=== PATIENT | male | born 1980 | race Caucasian/White ===

== ENCOUNTER 2019-07-29 11:24 | Emergency (ER) | payer OTHER ==
--- NOTE | 2019-07-29 11:38 | ED ---
Lower Extremity - HPI Summary HPI Summary: This patient is a 38 year old M presenting to [facility] accompanied by Jacquie with a chief complaint of right hip pain and right knee pain since 1135 due to a skateboard accident. Pt fell from a height of approximately 4 feet while skateboarding. Pt denies other injury. States he did not hit his head, did not lose consciousness. Pt's did not witness the fall. Pt denies headache, neck pain, back pain. C/O right knee pain in addition to right hip pain. Denies abd pain, N, V, chest pain, SOB. Patient states that he does not have any prior injuries to his right hip or his right knee. The patient rates the pain 9/10 in severity. Symptoms aggravated by movement per chlorinator operator and MD assessment. Symptoms alleviated by nothing. Vital signs while in room: HR 77 bpm, BP 116/87, O2 sat 100% Home Medications Medication Instructions Recorded Confirmed Type NK [No Home Medications Reported] 07/29/19 07/29/19 History - History of Current Complaint Stated Complaint: RT HIP PAIN PER PT Time Seen by Provider: 07/29/19 11:30 Hx Obtained From: Patient, Family/[employer] - , Jacquie Mechanism Of Injury: Fall From Height Of: - 4 feet Onset of Pain: Immediate - 1136 per pt, post fall Onset/Duration: Still Present Severity Initially: Severe Severity Currently: Severe Pain Intensity: 9 Pain Scale Used: 0-10 Numeric Timing: Constant, Lasting Hours - 1136, one hour Location: Is Discrete @ - Right hip and Right knee Character Of Pain: Sharp Associated Signs And Symptoms: Positive: Knee Pain - right knee pain. Negative : Swelling, Redness, Bruising, Weakness, Dizziness, Syncope, Abdominal Pain Aggravating Factor(s): Movement Alleviating Factor(s): Nothing Able to Bear Weight: No - brought pt to the ED - Allergies/Home Medications Allergies/Adverse Reactions: Allergies Allergy/AdvReac Type Severity Reaction Status Date / Time No Known Allergies Allergy Verified 07/29/19 11:35 Home Medications: Home Medications NK [No Home Medications Reported] 07/29/19 [History Confirmed 07/29/19] PMH/Surg Hx/FS Hx/Imm Hx Previously Healthy: Yes Sensory History: Denies: Hx Legally Blind, Hx Deafness Opthamlomology History: Denies: Hx Legally Blind - Surgical History Surgical History: Yes Surgery Procedure, Year, and Place: Tonsillectomy Infectious Disease History: No - Family History Known Family History: Positive: Cardiac Disease - grandmother - Social History Lives: With Family Alcohol Use: Daily Hx Substance Use: Yes Substance Use Type: Reports: Marijuana - occassionally Hx Tobacco Use: No Smoking Status (MU): Current Every Day Smoker Review of Systems Negative: Fever Eyes: Negative ENT: Negative Cardiovascular: Negative Respiratory: Negative Gastrointestinal: Negative Positive: no symptoms reported Positive: Other - Right hip pain and right knee pain Skin: Negative Neurological: Negative Psychological: Normal All Other Systems Reviewed And Are Negative: Yes Physical Exam - Summary Physical Exam Summary: Appearance: well-appearing, severe pain distress, well-nourished Skin: Warm, color reflects adequate perfusion, diaphoretic, no bruising Head: Normal Head/Face inspection, atraumatic Eyes: Conjunctiva clear, pupils midpoint, EOMI, no nystagmus ENT: Normal inspection, dental intact without pain on biting Neck: Supple, no nodes, no JVD, no spinal tenderness Respiratory: Lungs clear, normal breath sounds, no respiratory distress, no rib tenderness, no bruising, no crepitus Cardio: RRR, No murmur, pulses normal, brisk capillary refill Abdomen: Soft, nontender, nondistended; no masses; liver, spleen non palpable Bowel sounds: Present Musculoskeletal: pain on palpation right greater trochanter, pelvic rock no pain , not unstable, no bruising of right hip, no foreshortening, right knee without deformity, loss of sensation, able to flex and extend right knee but with severe pain, unable to lift right leg, able to dorsiflex and plantar flex right foot, distal pulses intact, no edema; no cervical, thoracic or lumbar spinal tenderness or deformity or bruising on log roll evaluation of pt's back Psychological: Normal Neuro: Alert, muscle tone normal, no focal deficit, GCS 15 : Nml circumcised M with Dontae RN in room upon exam Triage Information Reviewed: Yes Vital Signs Reviewed: Yes Diagnostics - Laboratory Result Diagrams: 07/29/19 11:51 07/29/19 11:51 Lab Statement: Any lab studies that have been ordered have been reviewed, and results considered in the medical decision making process. - Radiology Hip/Pelvis Xray Radiology Interpretation Completed By: Radiologist Summary of Radiographic Findings: Hip/Pelvis Xray reveals, per radiologist, IMPRESSION: RIGHT SUBCAPITAL FEMORAL NECK FRACTURE. ED Physician has reviewed this report. Right Knee Xray Radiology Interpretation Completed By: Radiologist Summary of Radiographic Findings: Right Knee Xray reveals, per radiologist, IMPRESSION: NO ACUTE OSSEOUS INJURY. IF SYMPTOMS PERSIST, RECOMMEND REPEAT IMAGING. ED Physician has reviewed this report. Chest Xray Radiology Interpretation Completed By: Radiologist Summary of Radiographic Findings: Chest Xray reveals, per radiologist, IMPRESSION: NO ACTIVE CARDIOPULMONARY DISEASE. ED Physician has reviewed this report. - EKG 1247 Cardiac Rate: NL EKG Rhythm: Sinus Rhythm - [address] Segment: Non-Specific Ectopy: None EKG Comparison: Other - no prior EKG to compare Summary of EKG Findings: An EKG at 1247 sinus rhythm at 72 bpm reveals nml AVIVCT, nml QTc, and nml axis. No acute changes. ED MD has reviewed and interpreted this EKG. Re-Evaluation - Re-Evaluation First Eval Re-Evaluation Time: 12:55 Change: Unchanged Comment: Ed Physician is aware of lactic acid at 2.1. Second Eval Re-Evaluation Time: 14:00 Change: Improved Comment: Dr. Sosa advised patient of right hip fracture. Patient states that pain is 7/10. Patient states that he last ate at 0800. He requests more morphine instead of Dilaudid because it made him grouchy. remains at patient bedside waiting for consult from Dr. Lewis. Third Eval Re-Evaluation Time: 15:26 Change: Improved Comment: Patient confirms last intake was at 0800 am. Patient is advised for CT per Dr. Lewis. Patient is administered morphine 4 mg at this time. Fourth Eval Re-Evaluation Time: 16:05 Change: Unchanged Comment: Advised of transfer ED to ED, Dr. Armstrong accepting, due to traumatic femoral neck fx. Pt and agree. Fifth Eval Re-Evaluation Time: 18:10 Change: Worse Comment: Pain is returning, morphine to be given prior to transfer. Lower Extremity Course/Dx - Course Course Of Treatment: 38 y/o male presents to ED at 1136 after high fall off skateboard with severe right hip and knee pain. Test results with no significant abnormalities except for Carbon Dioxide 20, Anion Gap 14, BUN/ Creatinine Ratio 20.7, Glucose 134, Lactic Acid 2.1, AST 45. In the ED course the patient was given Dilaudid 1 mg X2, Morphine 4mg, Zofran 4mg. Hip/Pelvis Xray reveals, per radiologist, IMPRESSION: RIGHT SUBCAPITAL FEMORAL NECK FRACTURE. ED Physician has reviewed this report. Right Knee Xray reveals, per radiologist, IMPRESSION: NO ACUTE OSSEOUS INJURY. IF SYMPTOMS PERSIST, RECOMMEND REPEAT IMAGING. ED Physician has reviewed this report. An EKG at 1247 sinus rhythm at 72 bpm reveals nml AVIVCT, nml QTc, and nml axis. No acute changes. ED MD has reviewed and interpreted this EKG. Chest Xray reveals, per radiologist, IMPRESSION: NO ACTIVE CARDIOPULMONARY DISEASE. ED Physician has reviewed this report. - Diagnoses Provider Diagnoses: Subcapital fracture of neck of right femur - Physician Notifications Discussed Care Of Patient With: Jacek Lewis - advises CT, calls again at 16: 02, advises emergent transfer for young pt with traumatic femoral neck fx Time Discussed With Above Provider: 15:41 Instructed by Provider To: Transfer - to higher level of care with trauma orthopedics Reason For Transfer: Specialty or service not available at [facility] - Critical Care Time Critical Care Time: 30-74 min Discharge ED - Sign-Out/Discharge Documenting (check all that apply): Patient Departure Patient Received Moderate/Deep Sedation with Procedure: No - Discharge Plan Condition: Stable Disposition: TRANS HIGHER LVL OF CARE FAC Referrals: No Primary Care Phys,NOPCP [Primary Care Provider] - - Billing Disposition and Condition Condition: STABLE Disposition: Trans Higher Lvl of Care Fac - Attestation Statements Document Initiated by Tonyibe: Yes Documenting Scribe: Fernanda Jerome Provider For Whom Jameel is Documenting (Include Credential): Dr. Vanesa Sosa MD Scribe Attestation: Fernanda Shannon scribed for Dr. Vanesa Sosa MD on 07/29/19 at 1737. Scribe Documentation Reviewed: Yes Provider Attestation: The documentation as recorded by the Fernanda celeste accurately reflects the service I personally performed and the decisions made by me, Dr. Vanesa Sosa MD Status of Scribe Document: Viewed Consult Consult: Dr. Lewis as per course. 1605 Dr. Armstrong at [facility] accepts patient as a transfer at this time, ED to ED.
[2019-07-29] MEDS ORDERED: HYDROmorphone INJ1* 1 MG/ML SYRINGE IV SLOW PU ONE (11:39)
[2019-07-29] MEDS ORDERED: NS 0.9% 1000 ML** 1,000 ML IV ONE (11:39)
[2019-07-29] MEDS ORDERED: HYDROmorphone INJ1* 1 MG/ML SYRINGE ONE (11:41)
[2019-07-29] MEDS ORDERED: Ondansetron INJ* 2 MG/ML VIAL IV ONE (11:42)
[2019-07-29 12:04] LABS: ABS Eosinophils 0.3 10^3/ul (0-0.6); ABS Lymphocytes 1.3 10^3/ul (1.0-4.8); ABS Monocytes 0.7 10^3/ul (0-0.8); ABS Neutrophils 5.3 10^3/ul (1.5-7.7); Eosinophil % 3.9 %; Hematocrit 45 % (42-52); Hemoglobin 15.7 g/dL (14.0-18.0); Lymphocyte % 17.1 %; Mean Corpuscular HGB Conc 35 g/dL (31-36); Mean Corpuscular Hemoglobin 30 pg (27-31); Mean Corpuscular Volume 87 fL (80-94); Mean Platelet Volume 7.8 fL (7.4-10.4); Nucleated Red Blood Cells % 0.1; Platelet Count 214 10^3/uL (150-450); Red Cell Distribution Width 13 % (10-15); White Blood Count 7.7 10^3/uL (3.5-10.8)
[2019-07-29 12:14] LABS: Activated Partial Thrombo Time 26.9 seconds (26.0-38.0); INR 0.91 (0.82-1.09)
[2019-07-29 12:35] LABS: ALT 50 U/L (7-52); AST 45 U/L (13-39); Albumin 4.6 g/dL (3.2-5.2); Albumin/Globulin Ratio 1.7 (1-3); Alkaline Phosphatase 56 U/L (34-104); Anion Gap 14 mmol/L (2-11); BUN/Creatinine Ratio 20.7 (8-20); Blood Urea Nitrogen 19 mg/dL (6-24); CO2 Carbon Dioxide 20 mmol/L (22-32); Calcium 9.7 mg/dL (8.6-10.3); Chloride 104 mmol/L (101-111); EGFR African American 111.4 (>60); EGFR Non-African American 92.1 (>60); Globulin 2.7 g/dL (2-4); Glucose 134 mg/dL (70-100); Potassium 3.7 mmol/L (3.5-5.0); Sodium 138 mmol/L (135-145); Total Protein 7.3 g/dL (6.4-8.9)
[2019-07-29] MEDS ORDERED: Morphine 4 MG/ML VIAL (1 ml) 4 MG/ML VIAL IV ONE ×3 (14:43→18:12)
[2019-07-29 18:07] LABS: Alcohol < 10 mg/dL (<10)
[2019-07-29 19:01] VITALS: BP 119/65
== END 2019-07-29 19:00 | disposition short-term general hospital (02) ==
LOC: ED 11:24
DX: S72.011A Unspecified intracapsular fracture of right femur, initial encounter for closed fracture (principal); W17.89XA Other fall from one level to another, initial encounter; Y93.51 Activity, roller skating (inline) and skateboarding; Y92.838 Other recreation area as the place of occurrence of the external cause; M25.561 Pain in right knee
CPT/HCPCS: 36415; 71045; 72192; 80053; 80320; 83605; 84484; 85025; 85610; 85730; 86850; 86900; 86901; 93005; 96361; 96374; 96375; 96376; 99284; G0480; J1170; J2270; J2405